=== PATIENT | female | born 1970 | race African-American/Black ===

== ENCOUNTER 2024-11-27 13:43 | Emergency (ER) | payer MEDICARE, MEDICAID ==
[~2024-11-27] VITALS: Ht 162.6 cm; Wt 56.8 kg
[~2024-11-27 13:43] MED LIST: ASPI81CH43 PO; ATOR20TA PO; CAR3125T PO; FERR325T24 PO; FURO1TAB33 PO; LIS5T PO; METF500T PO; SPIR25TA PO
--- NOTE | 2024-11-27 14:07 | ED.PDOC ---
History of Present Illness HPI Comments This is a 54-year-old female who comes in with chief complaint of generalized weakness. The patient was at home and when the paramedics arrived, the patient had a blood pressure of 84/42. The patient does have a history of kidney disease and is currently being worked up for possible peritoneal dialysis. The paramedics started an IV and gave the patient 50 cc of normal saline and the patient was blood pressure did come up. The patient denies any chest pain or shortness for breath. There has been no nausea, vomiting or diarrhea. The patient is able to give us her medical history without any difficulty. Time Seen by MD: 13:54 Primary Care Provider: JEMIMA SARABIA Reviewed Notes: Nurses Notes, Test Conductor Notes, Medications, Allergies (No allergies to medications) Allergies: Coded Allergies: NO KNOWN ALLERGIES (Unverified , 12/02/14) Home Meds Active Scripts Aspirin (Asa) 81 Mg Ch, 81 MG PO DAILY, #30 TAB Prov:MARIA T GERBER M.D. 01/22/15 Atorvastatin Calcium (Lipitor) 20 Mg Tab, 20 MG PO DAILY, #30 TAB Prov:MARIA T GERBER M.D. 01/22/15 Spironolactone (Aldactone) 25 Mg Tab, 25 MG PO DAILY, #30 TAB Prov:MARIA T GERBER M.D. 01/22/15 Furosemide (Lasix) 20 Mg Tb, 20 MG PO DAILY, #30 TAB Prov:MARIA T GERBER M.D. 01/22/15 Carvedilol (Coreg) 3.125 Mg Tb, 3.125 MG PO Q12HR, #60 TAB Prov:MARIA T GERBER M.D. 01/22/15 Lisinopril (ZESTRIL TABLET) 5 Mg Tb, 1 TAB PO DAILY, #30 TAB 5 Refills Prov:MARIA T GERBER M.D. 01/21/15 Metformin Hydrochloride (Glucophage) 500 Mg Tb, 500 MG PO IBID, #60 TAB Prov:MARIA T GERBER M.D. 01/21/15 Reported Medications Ferrous Sulfate (Ferrous Sulfate) 325 Mg Tab, 325 MG PO TIDWM for 30 Days 02/09/15 Information Source: Patient, Emergency Med Personnel Mode of Arrival: EMS Severity: Moderate Timing: Hours Duration: Since onset Prehospital treatment: IVF, Other (Normal saline bolus) Associated signs and symptoms Generalized weakness but no chest pain or shortness for breath Past Medical History PAST MEDICAL HISTORY: Anemia, CHF, CKF, DM, HTN Surgical History: BTL, Surgical History (Other): History of cervical ablation GRAVEL ROOFER History: No Pertinent GRAVEL ROOFER History Family History Family History: No family hx of HTN Social History Smoker: Quit Greater Than 1 Year, Cigarettes Alcohol: Rarely Drugs: Denies Drug Use Lives In: Home Constitutional: reports: weakness; denies: chills, diaphoresis, fatigue, fever, malaise, sweats, others EENTM: denies: blurred vision, double vision, ear bleeding, ear discharge, ear drainage, ear pain, ear ringing, eye pain, eye redness, hearing loss, mouth pain, mouth swelling, nasal discharge, nose bleeding, nose congestion, nose pain, photophobia, tearing, throat pain, throat swelling, voice changes, others Respiratory: denies: cough, hemoptysis, orthopnea, SOB at rest, shortness of breath, SOB with excertion, stridor, wheezing, others Cardiovascular: denies: chest pain, dizzy spells, diaphoresis, Dyspnea on exertion, edema, irregular heart beat, left arm pain, lightheadedness, palpitations, PND, syncope, others Gastrointestinal: denies: abdomen distended, abdominal pain, blood streaked bowels, constipated, diarrhea, dysphagia, difficulty swallowing, hematemesis, melena, nausea, poor appetite, poor fluid intake, rectal bleeding, rectal pain, vomiting, others Genitourinary: denies: abnormal vagina bleeding, burning, dyspareunia, dysuria, flank pain, frequency, hematuria, incontinence, pain, , vagina discharge, urgency, others Neurological: denies: dizziness, fainting, headache, left sided numbness, left sided weakness, numbness, paresthesia, pre-existing deficit, right sided numbness, right sided weakness, seizure, speech problems, tingling, tremors, weakness, others Musculoskeletal: denies: back pain, gout, joint pain, joint swelling, muscle pain, muscle stiffness, neck pain, others Integumetry: denies: bruises, change in color, change in hair/nails, dryness, laceration, lesions, lumps, rash, wounds, others Allergic/Immunocompromised: denies: Difficulty Healing, Frequent Infections, Hives, Itching, others Hematologic/Lymphatic: denies: anemia, blood clots, easy bleeding, easy bruising, swollen glands, others Endocrine: denies: excessive hunger, excessive sweating, excessive thirst, excessive urination, flushing, intolerance to cold, intolerance to heat, unexplained weight gain, unexplained weight loss, others Psychiatric: denies: anxiety, bipolar disorder, depression, hopeless, panic disorder, schizophrenia, sleepless, suicidal, others Physical Exam General Appearance: Moderate Distress HEENT: Normal ENT Inspection, Pharynx Normal, TMs Normal Neck: Full Range of Motion, Non-Tender, Normal, Normal Inspection Respiratory: Chest Non-Tender, Lungs Clear, No Accessory Muscle Use, No Respiratory Distress, Normal Breath Sounds Cardiovascular: No Edema, No JVD, No Murmur, No Gallop, Normal Peripheral Pulses, Regular Rate/Rhythm Breast Exam: Deferred Gastrointestinal: No Organomegaly, Non Tender, No Pulsatile Mass, Normal Bowel Sounds, Soft Genitalia: Deferred Pelvic: Deferred Rectal: Deferred Extremities: No calf tenderness, Normal capillary refill, Normal inspection Musculoskeletal : Apperance: Normal Neurologic: Alert, setter out II-XII nml as Tested, Motor Weakness, Normal Affect, Normal Mood, No Sensory Deficits Cerebellar Function: Normal Reflexes: Normal Skin: Dry, Normal Color, Warm Lymphatic: No Adenopathy Was a procedure done? Was a procedure done?: No Differential Dx Considerations may include: Generalized weakness, electrolyte imbalance, dehydration, kidney failure X-Ray, Labs, Meds, VS Vital Signs Date Time Temp Pulse Resp B/P (MAP) Pulse Ox O2 Delivery O2 Flow Rate FiO2 11/27/24 15:14 71 22 111/64 (80) 99 11/27/24 14:09 69 Lab Test 11/27/24 14:23 Range/Units White Blood Count 5.7 4.4-10.8 10^3/uL Red Blood Count 3.17 L 4.0-5.20 10^6/uL Hemoglobin 9.0 L 12.2-16.2 g/dL Hematocrit 28.5 L 36.0-46.0 % Mean Corpuscular Volume 90.0 80.0-100.0 fL Mean Corpuscular Hemoglobin 28.5 28.0-32.0 pg Mean Corpuscular Hemoglobin Concent 31.7 L 32.0-36.0 g/dL Red Cell Distribution Width 15.4 H 11.8-14.3 % Platelet Count 177 140-450 10^3/uL Mean Platelet Volume 10.7 6.9-10.8 fL Neutrophils (%) (Auto) 67.5 37.0-80.0 % Lymphocytes (%) (Auto) 12.3 10.0-50.0 % Monocytes (%) (Auto) 7.3 0.0-12.0 % Eosinophils (%) (Auto) 11.3 H 0.0-7.0 % Basophils (%) (Auto) 1.6 0.0-2.0 % Neutrophils # (Auto) 3.8 1.6-8.6 10 ^3/uL Lymphocytes # (Auto) 0.7 0.4-5.4 10 ^3/uL Monocytes # (Auto) 0.4 0-1.3 10 ^3/uL Eosinophils # (Auto) 0.6 0-0.8 10 ^3/uL Basophils # (Auto) 0.1 0-0.2 10 ^3/uL Nucleated Red Blood Cells 0.0 % Sodium Level 134 L 136-145 mmol/L Potassium Level 6.3 *H 3.5-5.1 mmol/L Chloride Level 102 98-107 mmol/L Carbon Dioxide Level 24 20-31 mmol/L Anion Gap 8 5-15 Blood Urea Nitrogen 54 H 9-23 mg/dL Creatinine 7.96 H 0.550-1.02 mg/dL Glomerular Filtration Rate Calc 6 >90 mL/min BUN/Creatinine Ratio 6.8 L 10.0-20.0 Serum Glucose 282 H 74-106 mg/dL Calcium Level 9.7 8.7-10.4 mg/dL IV Hep-Lock was established the patient's CBC shows a hemoglobin of 9 and hematocrit of 28.5 The platelets are 177 The chemistry panel shows hyperkalemia at 6.3 The BUN is 54 and the creatinine is 7.96 indicating acute renal failure An IV Hep-Lock was established The patient was being admitted to the hospitalist The patient was given calcium as well as insulin, dextrose and sodium bicarbonate for the hyperkalemia The patient was being admitted Images Reviewed?: Images reviewed and evaluated by me Time of 1ST Reevaluation: 14:07 Reevaluation 1ST: Unchanged Patient Education/Counseling: Diagnosis, Treatment, Prognosis Family Education/Counseling: No Family Present Departure 1 Departure Time of Disposition: 15:38 Impression: Primary Impression: Acute renal failure Qualified Codes: N17.1 - Acute kidney failure with acute cortical necrosis Additional Impressions: Hyperkalemia Dizziness Disposition: 09 ADMITTED INPATIENT Admit to: Tele Condition: Fair Critical Care Note Critical Care Time?: Yes (35 min-critical care time only) Stability Stability form required: Yes Unstable for transfer: Telemetry monitoring (Telemetry monitoring required), ED Physician Assesment (Clinical assesment) Heart Score Heart Score: Heart Score Response (Comments) Value History N/A 0 EKG N/A 0 Age N/A 0 Risk Factors N/A 0 Troponin N/A 0 Total 0 IZABEL HOLLAND MD Nov 27, 2024 14:07
--- NOTE | 2024-11-27 14:13 | ECG ---
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
[2024-11-27 14:40] LABS: Basophils # (auto) 0.1 10 ^3/uL (0-0.2); Basophils % (auto) 1.6 % (0.0-2.0); Eosinophils # (auto) 0.6 10 ^3/uL (0-0.8); Eosinophils % (auto) 11.3 % (0.0-7.0); Hematocrit 28.5 % (36.0-46.0); Lymphocytes # (auto) 0.7 10 ^3/uL (0.4-5.4); Lymphocytes % (auto) 12.3 % (10.0-50.0); Mean Corpuscular Hemoglobin 28.5 pg (28.0-32.0); Mean Corpuscular Hgb Conc. 31.7 g/dL (32.0-36.0); Monocytes # (auto) 0.4 10 ^3/uL (0-1.3); Monocytes % (auto) 7.3 % (0.0-12.0); Neutrophils # (auto) 3.8 10 ^3/uL (1.6-8.6); Neutrophils % (auto) 67.5 % (37.0-80.0); Platelet Count (auto) 177 10^3/uL (140-450); Red Blood Cells 3.17 10^6/uL (4.0-5.20); Red Cell Distribution Width 15.4 % (11.8-14.3); White Blood Cell 5.7 10^3/uL (4.4-10.8)
[2024-11-27 14:52] LABS: Chloride 102 mmol/L (98-107)
[2024-11-27 14:53] LABS: Anion Gap 8 (5-15); Carbon Dioxide 24 mmol/L (20-31)
[2024-11-27 14:54] LABS: Calcium 9.7 mg/dL (8.7-10.4)
[2024-11-27 14:58] LABS: BUN/Creatinine Ratio 6.8 (10.0-20.0)
[2024-11-27 15:08] LABS: Sodium 134 mmol/L (136-145)
[2024-11-27 15:12] LABS: Blood Urea Nitrogen 54 mg/dL (9-23); Glucose 282 mg/dL (74-106)
[2024-11-27 15:14] VITALS: BP 111/64; PULSE 71; RESP 22; O2SAT 99
[2024-11-27 15:25] LABS: Potassium 6.3 mmol/L (3.5-5.1)
[2024-11-27] MEDS ORDERED: InsuLIN REG 1unit/0.01ml Soln (100units/ml) IV ONE (15:45)
[2024-11-27] MEDS ORDERED: SODIUM BICARB 8.4% 50Meq/50ml SYR Vial IV ONE (15:45)
[2024-11-27] MEDS ORDERED: DEXTROSE (50%) 50ML SYRG IV ONE (15:45)
[2024-11-27] MEDS ORDERED: CALCIUM GLUC 1,000mg/50ml-NS 50 ML IV ONE (15:45)
== END 2024-11-27 15:21 | disposition left against medical advice (07) ==
LOC: EDBD 13:43 → ER 13:43
DX: N17.9 Acute kidney failure, unspecified (principal); I13.0 Hypertensive heart and chronic kidney disease with heart failure and stage 1 through stage 4 chronic kidney disease, or unspecified chronic kidney disease; N18.9 Chronic kidney disease, unspecified; I50.9 Heart failure, unspecified; E11.22 Type 2 diabetes mellitus with diabetic chronic kidney disease; E87.5 Hyperkalemia; R42 Dizziness and giddiness; R53.1 Weakness; Z98.890 Other specified postprocedural states
CPT/HCPCS: 36415; 80048; 85025; 93005; 99291